=== PATIENT | female | born 1970 | race Hispanic/Latino ===

== ENCOUNTER 2018-06-04 09:46 | Emergency (ER) | payer MEDICARE ==
[2018-06-04 10:36] LABS: Basophils % (Auto) 0.3 % (0.0-1.8); Eosinophils # (Auto) 0.2 K/mm3 (0.0-0.4); Eosinophils % (Auto) 2.1 % (0.0-4.3); Hematocrit 40.9 % (30.3-42.9); Hemoglobin 13.7 gm/dl (10.1-14.3); Lymphocytes # (Auto) 1.6 K/mm3 (1.2-5.4); Mean Corpuscular HGB Conc 33 % (30-34); Mean Corpuscular Volume 85 fl (79-97); Monocytes # (Auto) 0.5 K/mm3 (0.0-0.8); Monocytes % (Auto) 4.7 % (0.0-7.3); Platelet Count 318 K/mm3 (140-440); Red Blood Count 4.79 M/mm3 (3.65-5.03); Red Cell Distribution Width 14.8 % (13.2-15.2)
[2018-06-04 10:51] LABS: BUN/Creatinine Ratio 11; Blood Urea Nitrogen 9 mg/dL (7-17); Calcium 9.9 mg/dL (8.4-10.2); Hemolysis Index 8
[2018-06-04] MEDS ORDERED: ATIVAN IM ONE (11:40)
--- NOTE | 2018-06-04 12:00 | Emergency Department Report ---
ED Psych HPI - General Chief Complaint: Psych Stated Complaint: MENTAL EVAL Time Seen by Provider: 06/04/18 11:20 Source: patient, police Mode of arrival: Ambulatory - History of Present Illness Initial Comments: 47-year-old brought in by police for aggressive behavior and her group home house. Patient denies SI, HI, or hallucinations. She states she is feeling anxious right now. Patient currently rocking back and forth in her bed. States she does not know her diagnosis, states she takes medication but does not know the names of them. - Related Data Home Medications Medication Instructions Recorded Confirmed Last Taken Unobtainable 06/04/18 06/04/18 Unknown Allergies Allergy/AdvReac Type Severity Reaction Status Date / Time Penicillins Allergy Hives Verified 06/04/18 10:07 ED Review of Systems ROS: Stated complaint: MENTAL EVAL Other details as noted in HPI ED Past Medical Hx - Social History Smoking Status: Never Smoker Substance Use Type: None - Medications Home Medications: Home Medications Medication Instructions Recorded Confirmed Last Taken Type Unobtainable 06/04/18 06/04/18 Unknown History ED Physical Exam - General Limitations: No Limitations ED Course Vital Signs 06/04/18 06/04/18 06/04/18 10:06 15:20 15:31 Temperature 99.2 F 97.5 F L Pulse Rate 91 H 102 H Respiratory 18 18 Rate Blood Pressure 149/82 136/78 O2 Sat by Pulse 97 99 Oximetry ED Medical Decision Making - Lab Data Result diagrams: 06/04/18 10:17 06/04/18 10:17 - Medical Decision Making 47-year-old female with unknown psychiatric diagnosis presents with aggressive and violent behavior towards those in her residence. Patient placed on a 1013. UA shows evidence of UTI. Bactrim DS given. Patient otherwise medically clear for mental health evaluation. Will dispo per psych. Critical care attestation.: If time is entered above; I have spent that time in minutes in the direct care of this critically ill patient, excluding procedure time. ED Disposition Clinical Impression: Medical clearance for psychiatric admission, UTI (urinary tract infection) Disposition: DC/TX-65 PSY HOSP/PSY UNIT Is pt being admited?: No Condition: Stable
[2018-06-04 12:49] LABS: Bacteria,Urine 1+ /HPF (Negative); Bilirubin,Urine NEG (Negative); Blood,Urine MOD (Negative); Color,Urine Yellow (Yellow); Mucus,Urine FEW /HPF; Protein,Urine <15 mg/dL mg/dL (Negative); Urobilinogen,Urine < 2.0 mg/dL (<2.0)
[2018-06-04 13:18] LABS: Amphetamine Screen,Urine PRESUMPTIVE NEGATIVE; Benzodiazepines Screen,Urine PRESUMPTIVE NEGATIVE; Cannabinoid Screen,Urine PRESUMPTIVE NEGATIVE; Cocaine Screen,Urine PRESUMPTIVE NEGATIVE; Methadone Screen,Urine PRESUMPTIVE NEGATIVE; Opiate Screen,Urine PRESUMPTIVE NEGATIVE
[2018-06-04] MEDS ORDERED: BACTRIM DS PO ONE (15:03)
[2018-06-04 15:31] VITALS: BP 136/78
== END 2018-06-04 18:55 ==
LOC: ED 09:46
DX: N39.0 Urinary tract infection, site not specified (principal)
CPT/HCPCS: 36415; 80048; 80307; 81001; 84703; 85025; 96372; 99285; G0480; J2060; 80320

== ENCOUNTER 2018-06-04 20:53 | Emergency (ER) | payer MEDICARE ==
--- NOTE | 2018-06-04 21:24 | Emergency Department Report ---
Blank Doc - Documentation Documentation: 47 y.o. female presents with chest pain that started 1 hour ago. Patient brou ght in via EMS. She was discharged today around 1500 from this ER. cc substernal chest pain that is sharp radiating to BLE Patient have rapid eye movements and rocking back in forth in triage. MSE complete Main side for evaluation
== END 2018-06-04 23:10 | disposition left against medical advice (07) ==
LOC: ED 20:53

== ENCOUNTER 2018-06-05 08:06 | Emergency (ER) | payer MEDICARE ==
[2018-06-05] MEDS ORDERED: GEODON IM ONE (09:09)
--- NOTE | 2018-06-05 09:25 | Emergency Department Report ---
ED Psych HPI - General Chief Complaint: Medical Clearance Stated Complaint: BIPOLAR DISORDER Time Seen by Provider: 06/05/18 09:00 Source: patient Mode of arrival: Ambulatory - History of Present Illness Initial Comments: Patient is a 47-year-old female with past medical history bipolar disorder who was transported to [facility] last night with walking to our ER this morning stating that she has bipolar disorder and she also has chest pain. Patient is a poor historian secondary to her bipolar disorder. Patient is reluctant to answer questions and is just yelling aggressively that she has chest pain and she artery answered our 'F'n questions" - Related Data Previous Rx's Medication Instructions Recorded Last Taken Type Sulfamethoxazole/Trimethoprim 1 each PO BID #6 tablet 06/04/18 Unknown Rx [Bactrim DS TAB] Allergies Allergy/AdvReac Type Severity Reaction Status Date / Time Penicillins Allergy Hives Verified 06/04/18 10:07 ED Review of Systems ROS: Stated complaint: BIPOLAR DISORDER Other details as noted in HPI Comment: All other systems reviewed and negative ED Past Medical Hx - Past Medical History Hx Diabetes: Yes Hx Psychiatric Treatment: Yes (bipolar) - Social History Smoking Status: Never Smoker Substance Use Type: None - Medications Home Medications: Home Medications Medication Instructions Recorded Confirmed Last Taken Type Sulfamethoxazole/Trimethoprim 1 each PO BID #6 tablet 06/04/18 Unknown Rx [Bactrim DS TAB] ED Physical Exam - General Limitations: Other General appearance: alert, in no apparent distress, other (yelling and attempting to be intimidating iwlliam her loudness and gestures which are animated) - Head Head exam: Present: atraumatic, normocephalic - Eye Eye exam: Present: normal appearance - ENT ENT exam: Present: mucous membranes moist - Neck Neck exam: Present: normal inspection - Respiratory Respiratory exam: Present: other (patient grabbed my stethoscope from me as I was attempting to listen to her heart and lungs). Absent: respiratory distress - Cardiovascular Cardiovascular Exam: Present: other (please see respiratory notes) - GI/Abdominal GI/Abdominal exam: Present: soft, normal bowel sounds. Absent: distended, tenderness, guarding - Extremities Exam Extremities exam: Present: normal inspection - Back Exam Back exam: Present: normal inspection - Neurological Exam Neurological exam: Present: alert, oriented X3, CN II-XII intact, normal gait, other (pressured speech) - Psychiatric Psychiatric exam: Present: normal affect, agitated - Skin Skin exam: Present: warm, dry, intact, normal color. Absent: rash ED Course Vital Signs 06/05/18 11:08 Respiratory 20 Rate O2 Sat by Pulse 98 Oximetry ED Medical Decision Making - Lab Data Result diagrams: 06/05/18 10:08 06/05/18 10:08 Lab Results 06/05/18 06/05/18 06/05/18 Range/Units 10:08 10:08 10:08 WBC 9.8 (4.5-11.0) K/mm3 RBC 4.64 (3.65-5.03) M/mm3 Hgb 13.2 (10.1-14.3) gm/dl Hct 40.1 (30.3-42.9) % MCV 87 (79-97) fl MCH 29 (28-32) pg MCHC 33 (30-34) % RDW 14.9 (13.2-15.2) % Plt Count 280 (140-440) K/mm3 Lymph % (Auto) 15.8 (13.4-35.0) % Cooper % (Auto) 5.8 (0.0-7.3) % Eos % (Auto) 1.9 (0.0-4.3) % Baso % (Auto) 0.3 (0.0-1.8) % Lymph # 1.6 (1.2-5.4) K/mm3 Cooper # 0.6 (0.0-0.8) K/mm3 Eos # 0.2 (0.0-0.4) K/mm3 Baso # 0.0 (0.0-0.1) K/mm3 Seg Neutrophils % 76.2 H (40.0-70.0) % Seg Neutrophils # 7.5 (1.8-7.7) K/mm3 Sodium 139 (137-145) mmol/L Potassium 3.8 (3.6-5.0) mmol/L Chloride 103.6 (98-107) mmol/L Carbon Dioxide 20 L (22-30) mmol/L Anion Gap 19 mmol/L BUN 13 (7-17) mg/dL Creatinine 0.8 (0.7-1.2) mg/dL Estimated GFR > 60 ml/min BUN/Creatinine Ratio 16 % Glucose 137 H (65-100) mg/dL Calcium 9.1 (8.4-10.2) mg/dL Salicylates < 0.3 L (2.8-20.0) mg/dL Acetaminophen (10.0-30.0) ug/mL Plasma/Serum Alcohol (0-0.07) % 06/05/18 06/05/18 Range/Units 10:08 10:08 WBC (4.5-11.0) K/mm3 RBC (3.65-5.03) M/mm3 Hgb (10.1-14.3) gm/dl Hct (30.3-42.9) % MCV (79-97) fl MCH (28-32) pg MCHC (30-34) % RDW (13.2-15.2) % Plt Count (140-440) K/mm3 Lymph % (Auto) (13.4-35.0) % Cooper % (Auto) (0.0-7.3) % Eos % (Auto) (0.0-4.3) % Baso % (Auto) (0.0-1.8) % Lymph # (1.2-5.4) K/mm3 Cooper # (0.0-0.8) K/mm3 Eos # (0.0-0.4) K/mm3 Baso # (0.0-0.1) K/mm3 Seg Neutrophils % (40.0-70.0) % Seg Neutrophils # (1.8-7.7) K/mm3 Sodium (137-145) mmol/L Potassium (3.6-5.0) mmol/L Chloride (98-107) mmol/L Carbon Dioxide (22-30) mmol/L Anion Gap mmol/L BUN (7-17) mg/dL Creatinine (0.7-1.2) mg/dL Estimated GFR ml/min BUN/Creatinine Ratio % Glucose (65-100) mg/dL Calcium (8.4-10.2) mg/dL Salicylates (2.8-20.0) mg/dL Acetaminophen < 5.0 L (10.0-30.0) ug/mL Plasma/Serum Alcohol < 0.01 (0-0.07) % - Medical Decision Making In further review of the patient's last 24 hours after the patient left the emergency department here last night the patient refused to be signed in to [facility] and started complaining of chest pain. Patient was transported here and was screened from the emergency department but then left again. Patient then showed up this morning wanted to be evaluated. Patient has been met by one of the sutures from [place] and the patient has been medically cleared this time he'll be transported back to [facility]. Critical care attestation.: If time is entered above; I have spent that time in minutes in the direct care of this critically ill patient, excluding procedure time. ED Disposition Clinical Impression: Medical clearance for psychiatric admission Disposition: DC/TX-65 PSY HOSP/PSY UNIT Is pt being admited?: No Condition: Stable Referrals: MINH GIBSON DO [Primary Care Provider] - 3-5 Days
[2018-06-05 10:23] LABS: Basophils % (Auto) 0.3 % (0.0-1.8); Eosinophils # (Auto) 0.2 K/mm3 (0.0-0.4); Eosinophils % (Auto) 1.9 % (0.0-4.3); Hematocrit 40.1 % (30.3-42.9); Hemoglobin 13.2 gm/dl (10.1-14.3); Lymphocytes # (Auto) 1.6 K/mm3 (1.2-5.4); Lymphocytes % (Auto) 15.8 % (13.4-35.0); Mean Corpuscular HGB Conc 33 % (30-34); Mean Corpuscular Volume 87 fl (79-97); Monocytes # (Auto) 0.6 K/mm3 (0.0-0.8); Monocytes % (Auto) 5.8 % (0.0-7.3); Platelet Count 280 K/mm3 (140-440); Red Blood Count 4.64 M/mm3 (3.65-5.03); Red Cell Distribution Width 14.9 % (13.2-15.2)
[2018-06-05 10:35] LABS: BUN/Creatinine Ratio 16; Blood Urea Nitrogen 13 mg/dL (7-17); Calcium 9.1 mg/dL (8.4-10.2); Hemolysis Index 18
== END 2018-06-05 12:50 ==
LOC: ED 08:06
DX: F31.9 Bipolar disorder, unspecified (principal); E11.9 Type 2 diabetes mellitus without complications; Z88.0 Allergy status to penicillin
CPT/HCPCS: 36415; 80048; 85025; 93005; 93010; 96372; 99283; G0480; J3486; 80320

== ENCOUNTER 2018-06-21 19:05 | Observation (INO) | payer MEDICARE ==
--- NOTE | 2018-06-21 19:37 | Emergency Department Report ---
ED Chest Pain HPI - General Chief Complaint: Chest Pain Stated Complaint: (R) ARM PAIN Time Seen by Provider: 06/21/18 19:26 Source: patient, EMS Mode of arrival: Ambulatory Limitations: No Limitations - History of Present Illness Initial Comments: 47-year-old female presents to the emergency department from home with a complaint of a 10 day history of intermittent midsternal chest pain. She says that recently it has radiated towards her right arm. She denies any shortness of breath, back pain, fever, nausea, vomiting or diaphoresis. She has not taken anything for her symptoms prior to arrival. She denies any tobacco or illicit drug use or abuse. She has a past medical history of bipolar disorder and prediabetes. No recent travel or sick contacts at home. She does not have a primary care physician or medicare sales executive. - Related Data Previous Rx's Medication Instructions Recorded Last Taken Type Sulfamethoxazole/Trimethoprim 1 each PO BID #6 tablet 06/04/18 Unknown Rx [Bactrim DS TAB] Allergies Allergy/AdvReac Type Severity Reaction Status Date / Time Penicillins Allergy Hives Verified 06/04/18 10:07 Heart Score - HEART Score History: Slightly suspicious EKG: Normal Age: 45-65 Risk factors: No known risk factors Troponin: < normal limit HEART Score: 1 - Critical Actions Critical Actions: 0-3 pts:0.9-1.7%risk of adverse cardiac event.Candidate for discharge ED Review of Systems ROS: Stated complaint: (R) ARM PAIN Other details as noted in HPI Comment: All other systems reviewed and negative Constitutional: denies: chills, fever Eyes: denies: eye pain, vision change ENT: denies: ear pain, throat pain Respiratory: denies: cough, shortness of breath Cardiovascular: chest pain. denies: palpitations Gastrointestinal: denies: abdominal pain, vomiting Genitourinary: denies: dysuria, discharge Musculoskeletal: myalgia. denies: back pain Skin: denies: rash, lesions Neurological: denies: headache, weakness ED Past Medical Hx - Past Medical History Previous Medical History?: Yes Hx Diabetes: Yes Hx Psychiatric Treatment: Yes (bipolar) - Social History Smoking Status: Never Smoker Substance Use Type: Prescribed - Medications Home Medications: Home Medications Medication Instructions Recorded Confirmed Last Taken Type Sulfamethoxazole/Trimethoprim 1 each PO BID #6 tablet 06/04/18 Unknown Rx [Bactrim DS TAB] ED Physical Exam - General Limitations: No Limitations - Other Other exam information: GENERAL: The patient is well-developed well-nourished. HEENT: Normocephalic. Atraumatic. Patient has moist mucous membranes. EYES: Extraocular motions are intact. Pupils are equal and reactive to light bilaterally. NECK: Supple. Trachea is midline. CHEST/LUNGS: Clear to auscultation. There is no respiratory distress noted. Chest pain is not reproducible to palpation of the chest wall. HEART/CARDIOVASCULAR: Regular. There is no tachycardia. There is no obvious murmur. ABDOMEN: Abdomen is soft, nontender. Patient has normal bowel sounds. There is no abdominal distention. SKIN: Skin is warm and dry. NEURO: The patient is awake, alert, and oriented. The patient is cooperative. The patient has no focal neurologic deficits. The patient has normal speech. MUSCULOSKELETAL: There is no tenderness or deformity. There is no evidence of acute injury. ED Course Vital Signs 06/21/18 06/21/18 06/21/18 15:40 15:46 19:25 Temperature 98.0 F Pulse Rate Respiratory 21 19 Rate Blood Pressure O2 Sat by Pulse Oximetry 06/21/18 06/21/18 06/21/18 19:38 19:45 20:01 Temperature Pulse Rate 91 H 95 H 98 H Respiratory 17 21 20 Rate Blood Pressure 104/65 104/65 104/65 O2 Sat by Pulse Oximetry 06/21/18 06/21/18 06/21/18 20:15 20:30 20:45 Temperature Pulse Rate 87 101 H 83 Respiratory 20 17 18 Rate Blood Pressure 104/65 96/69 96/69 O2 Sat by Pulse 97 94 95 Oximetry 06/21/18 06/21/18 06/21/18 21:00 21:15 21:45 Temperature Pulse Rate 84 79 97 H Respiratory 18 18 20 Rate Blood Pressure 108/75 108/75 108/75 O2 Sat by Pulse 98 Oximetry 06/21/18 23:01 Temperature Pulse Rate 87 Respiratory 20 Rate Blood Pressure 111/63 O2 Sat by Pulse 97 Oximetry ARIANNE score - Arianne Score Age > 65: (0) No Aspirin use within the Past 7 Days: (0) No 3 or more CAD Risk Factors: (0) No 2 or more Angina events in past 24 hrs: (1) Yes (If pain is angina) Known CAD with more than 50% Stenosis: (0) No Elevated Cardiac Markers: (0) No ST Deviation Greater than 0.5mm: (0) No ARIANNE Score: 1 ED Medical Decision Making - Lab Data Result diagrams: 06/21/18 19:42 06/21/18 19:42 - EKG Data -: EKG Interpreted by Me EKG shows normal: sinus rhythm, axis, intervals, QRS complexes, ST-T waves Rate: normal - EKG Data When compared to previous EKG there are: no significant change Interpretation: unchanged when compared t (06/04/18) - Radiology Data Radiology results: report reviewed, image reviewed EXAM: CT ANGIO CHEST HISTORY: CP, elevated dimer TECHNIQUE: High-resolution helical axial images were obtained of the chest during intravenous administration of iodinated contrast. Images are reconstructed in the sagittal and coronal planes. PRIORS: None. FINDINGS: Opacification of the pulmonary arteries slightly less than optimal for demonstration of small or peripheral PE. The heart and thoracic aorta appear normal. There is mild right basilar subsegmental atelectasis. The lungs are clear. There are very small bilateral pleural effusions. Images through the upper abdomen are unremarkable. The bones are unremarkable. IMPRESSION: 1. Suboptimal contrast opacification of the pulmonary arterial tree limits s ensitivity in this study. Depending on the clinical assessment, further evaluation should be consid ered such as a nuclear medicine ventilation/perfusion study and/or bilateral lower extremity duplex to better assess risk of PE. 2. Very small bilateral pleural effusions and mild right basilar subsegmental atelectasis Transcribed By: [facility] [place] Dictated By: YONAS SHEETS MD Electronically Authenticated By: YONAS SHEETS MD Signed Date/Time: 06/21/18 1561 - Medical Decision Making Patient presents to the emergency department with a 10 day history of intermitt ent midsternal chest pain that has now also started to involve the right upper extremity. EKG does not show any signs of ST elevation [place], ischemia or dysrhythmia. Patient has negative troponins 2 this far. There is a slightly elevated and equivocal d-dimer and therefore a CT angiography of the chest was done. It was a suboptimal contrasted study for any small or peripheral PEs but there is no obvious large pulmonary embolism. Chest x-ray did not show any focal consolidation, pneumothorax, pneumonia, pleural effusions, or any other acute processes. However the patient continues to have some intermittent chest pains and has never had a full cardiac workup including a stress test. For this reason the patient will be admitted the hospital for further evaluation and treatment was accepted for admission by the hospitalist, Dr. Honeycutt. - Differential Diagnosis WA, PE, Costochondritis, GERD Critical Care Time: No Critical care attestation.: If time is entered above; I have spent that time in minutes in the direct care of this critically ill patient, excluding procedure time. ED Disposition Clinical Impression: Chest pain, rule out acute myocardial infarction Chest pain Qualifiers: Chest pain type: unspecified Qualified Code(s): R07.9 - Chest pain, unspecified Disposition: 09 OP ADMIT IP TO THIS HOSP Is pt being admited?: Yes Condition: Fair Instructions: Chest Pain (ED) Referrals: PRIMARY CARE, [Primary Care Provider] - 3-5 Days Time of Disposition: 00:30
[2018-06-21 20:03] LABS: Basophils % (Auto) 0.4 % (0.0-1.8); Eosinophils # (Auto) 0.3 K/mm3 (0.0-0.4); Eosinophils % (Auto) 3.2 % (0.0-4.3); Hematocrit 36.7 % (30.3-42.9); Hemoglobin 12.9 gm/dl (10.1-14.3); Lymphocytes # (Auto) 2.2 K/mm3 (1.2-5.4); Mean Corpuscular HGB Conc 35 % (30-34); Mean Corpuscular Volume 85 fl (79-97); Monocytes # (Auto) 0.6 K/mm3 (0.0-0.8); Monocytes % (Auto) 5.7 % (0.0-7.3); Platelet Count 248 K/mm3 (140-440); Red Blood Count 4.29 M/mm3 (3.65-5.03); Red Cell Distribution Width 14.4 % (13.2-15.2)
[2018-06-21 20:14] LABS: BUN/Creatinine Ratio 11; Blood Urea Nitrogen 8 mg/dL (7-17); Hemolysis Index 12
--- NOTE | 2018-06-21 21:37 | XRay Report ---
FINAL REPORT PROCEDURE: Chest. TECHNIQUE: Portable AP view. HISTORY: Chest pain. COMPARISON: No prior studies are available for comparison. FINDINGS: The heart and mediastinum appear normal. The lungs are clear and well expanded. There are no pleural effusions. The soft tissues and regional skeleton are unremarkable. IMPRESSION: Normal study.
--- NOTE | 2018-06-21 23:18 | Cat Scan Report ---
FINAL REPORT EXAM: CT ANGIO CHEST HISTORY: CP, elevated dimer TECHNIQUE: High-resolution helical axial images were obtained of the chest during intravenous admini stration of iodinated contrast. Images are reconstructed in the sagittal and coronal planes. PRIORS: None. FINDINGS: Opacification of the pulmonary arteries slightly less than optimal for demonstration of small or wiliam pheral PE. The heart and thoracic aorta appear normal. There is mild right basilar subsegmental atelectasis. The lungs are clear. There are very small bilat eral pleural effusions. Images through the upper abdomen are unremarkable. The bones are unremarkable. IMPRESSION: 1. Suboptimal contrast opacification of the pulmonary arterial tree limits sensitivity in this study. Depending on the clinical assessment, further evaluation should be considered such as a nuclear medi cine ventilation/perfusion study and/or bilateral lower extremity duplex to better assess risk of PE. 2. Very small bilateral pleural effusions and mild right basilar subsegmental atelectasis
[2018-06-21] MEDS ORDERED: TORADOL IV ONE (23:22)
[2018-06-22] MEDS ORDERED: BABY ASPIRIN PO ONE (00:29)
[2018-06-22] MEDS ORDERED: NITROSTAT SL PRN (01:31)
[2018-06-22] MEDS ORDERED: MORPHINE IV PRN (01:31)
[2018-06-22] MEDS ORDERED: ZOFRAN IV PRN (01:31)
[2018-06-22] MEDS ORDERED: TYLENOL PO PRN (01:32)
[2018-06-22] MEDS: HEPARIN SUB-Q SCH ×2 (01:38→13:24)
[2018-06-22] MEDS: NITRO-BID 2% TP SCH ×5 (02:35→17:32)
--- NOTE | 2018-06-22 04:14 | History and Physical Report ---
CHIEF COMPLAINT: Chest pain. HISTORY OF PRESENT ILLNESS: The patient is a 47-year-old female who said she has been having chest pain going on and off for 10 days; pain is located at the precordial and retrosternal area and radiates towards the right, and she has no history of shortness of breath, no associated history of nausea, vomiting, diaphoresis, or fever or cough. The patient also denied history of dizziness and presented for evaluation. PAST MEDICAL HISTORY: Pertinent for diabetes mellitus, bipolar disorder. PAST SURGICAL HISTORY: Unremarkable. FAMILY HISTORY: Noncontributory. SOCIAL HISTORY: The patient does not smoke, does not drink alcohol, and does not use illicit drugs. MEDICATIONS: The patient is on Bactrim double strength one by mouth twice daily. ALLERGIES: The patient is allergic to PENICILLIN. REVIEW OF SYSTEMS: CONSTITUTIONAL: There is no fever, no chills, no diaphoresis. HEENT: There is no headache or sore throat. CARDIOVASCULAR SYSTEM: Chest pain is present. No orthopnea. RESPIRATORY SYSTEM: There is no shortness of breath or cough. GASTROINTESTINAL SYSTEM: There is no nausea, no vomiting, no abdominal pain, diarrhea or constipation. NEUROLOGICAL SYSTEM: There is no numbness, no dizziness, no altered mental status. MUSCULOSKELETAL SYSTEM: There is no joint pain or swelling. DERMATOLOGICAL SYSTEM: There is no skin rash or itching. GENITOURINARY SYSTEM: There is no dysuria, hematuria or flank pain. Rest of system review is normal. PHYSICAL EXAMINATION: GENERAL: At the time of exam, the patient was found to be alert, oriented x3, and not in acute distress. VITAL SIGNS: At the initial time of presentation show temperature of 98 degree Fahrenheit, pulse of 91, respirations 17, blood pressure 104/65, O2 sat of 97% on room air. HEENT: Showed pupils to be equal, round, reactive to light and accommodation. Extraocular muscles are intact. NECK: Supple with no JVD or carotid bruit. CARDIOVASCULAR SYSTEM: Showed normal first and second heart sounds with no gallops or murmurs. RESPIRATORY SYSTEM: Showed good air entry on both sides of the lungs with no abnormal breath sounds. GASTROINTESTINAL SYSTEM: Show abdomen to be full, soft, and nontender with no organomegaly or rigidity. NEUROLOGICAL: Shows no focal deficit. MUSCULOSKELETAL SYSTEM: Shows no joint swelling or tenderness. DERMATOLOGICAL SYSTEM: Showing no skin rash. GENITOURINARY SYSTEM: Showing no costovertebral angle tenderness. PERTINENT LABORATORY DATA AND IMAGING STUDIES: The patient had chest x-ray done that shows no acute cardiopulmonary lesion. Also, the patient had CT angiogram of the chest done that shows a suboptimal contrast opacification of the pulmonary artery tree, the early missed activity in the study. There is finding of varus small bilateral pleural effusion and mild right basilar segmental atelectasis. The patient has CBC done that came back unremarkable. Coagulation studies show elevated D-dimer of 362.5. The patient's chemistry was unremarkable. Blood test was unremarkable. Troponin levels came back normal. DIAGNOSIS: Chest pain. PLAN OF ACTION: 1. The patient will be admitted to telemetry. 2. The patient will have cardiac enzymes checked serially and this would involve CPK and troponin, and CK-MB every 6 hours x 2 more levels. 3. The patient will be n.p.o. for Lexiscan stress test this morning. 4. The patient will be on aspirin 325 mg by mouth daily. 5. The patient will be on IV morphine 2 mg every 3 hours as needed for chest pain. 6. The patient will be on heparin 5000 units subq q.12 hours, will be on Tylenol 650 mg by mouth every 4 hours for fever and headache. 7. The patient will be on nitro paste half inch to anterior chest wall q.6 hours and will be on Nitrostat 0.4 mg every 5 minutes as needed for pain. 8. The patient will be on Zofran 4 mg IV every 8 hours for nausea and vomiting, and will be on oxygen by nasal cannula 2 liters per minute. JOB# [id number] OCN/NTS ELOISED
[2018-06-22 06:49] LABS: Creatine Kinase MB < 1.0 ng/mL (0.0-4.0)
[2018-06-22] MEDS: ASPIRIN PO SCH (09:56)
--- NOTE | 2018-06-22 12:18 | Progress Note ---
Assessment and Plan Assessment and plan: Patient is a 47 year old female presents admitted with chest pain. No family hx of personal risk factors except obesity and prediabetes She has a past medical history of bipolar disorder and prediabetes. No recent travel or sick contacts at home. 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 Atypical chest pain- likely costochondritis Bipolar disorder Morbid Obesity Pleural effusion Plan STRESS TEST IN AM Counselling on obesity and diet regulation. Outpatient EGD if stress test is negative Continue current management. DVT/GI prophy History Interval history: Patient seen and examined, no new chest pain. Nausea and vomiting at this time Hospitalist Physical - Constitutional Vitals: Temp Pulse Resp BP Pulse Ox 97.5 F L 78 18 115/71 95 06/22/18 09:43 06/22/18 09:56 06/22/18 10:00 06/22/18 09:56 06/22/18 10:16 General appearance: Present: no acute distress, well-nourished. Absent: mild distress - EENT Eyes: Present: PERRL, EOM intact ENT: hearing intact - Neck Neck: Present: supple, normal ROM - Respiratory Respiratory effort: normal Respiratory: bilateral: CTA - Cardiovascular Rhythm: regular Heart Sounds: Present: S1 & S2. Absent: systolic murmur - Extremities Extremities: no ischemia, pulses intact, pulses symmetrical, No edema, normal temperature, normal color, Full ROM Peripheral Pulses: within normal limits - Abdominal General gastrointestinal: soft, non-tender, non-distended, normal bowel sounds - Integumentary Integumentary: Present: clear, warm, dry - Psychiatric Psychiatric: appropriate mood/affect, intact judgment & insight, cooperative - Neurologic Neurologic: CNII-XII intact, moves all extremities - Allied Health Allied health notes reviewed: nursing Results - Labs CBC & Chem 7: 06/21/18 19:42 06/21/18 19:42 Labs: Laboratory Last Values WBC 10.5 K/mm3 (4.5-11.0) 06/21/18 19:42 RBC 4.29 M/mm3 (3.65-5.03) 06/21/18 19:42 Hgb 12.9 gm/dl (10.1-14.3) 06/21/18 19:42 Hct 36.7 % (30.3-42.9) 06/21/18 19:42 MCV 85 fl (79-97) 06/21/18 19:42 MCH 30 pg (28-32) 06/21/18 19:42 MCHC 35 % (30-34) H 06/21/18 19:42 RDW 14.4 % (13.2-15.2) 06/21/18 19:42 Plt Count 248 K/mm3 (140-440) 06/21/18 19:42 Lymph % (Auto) 21.0 % (13.4-35.0) 06/21/18 19:42 [place] % (Auto) 5.7 % (0.0-7.3) 06/21/18 19:42 Eos % (Auto) 3.2 % (0.0-4.3) 06/21/18 19:42 Baso % (Auto) 0.4 % (0.0-1.8) 06/21/18 19:42 Lymph # 2.2 K/mm3 (1.2-5.4) 06/21/18 19:42 [place] # 0.6 K/mm3 (0.0-0.8) 06/21/18 19:42 Eos # 0.3 K/mm3 (0.0-0.4) 06/21/18 19:42 Baso # 0.0 K/mm3 (0.0-0.1) 06/21/18 19:42 Seg Neutrophils % 69.7 % (40.0-70.0) 06/21/18 19:42 Seg Neutrophils # 7.3 K/mm3 (1.8-7.7) 06/21/18 19:42 D-Dimer 362.58 ng/mlDDU (0-234) H 06/21/18 19:42 Sodium 140 mmol/L (137-145) 06/21/18 19:42 Potassium 4.2 mmol/L (3.6-5.0) 06/21/18 19:42 Chloride 105.3 mmol/L (98-107) 06/21/18 19:42 Carbon Dioxide 24 mmol/L (22-30) 06/21/18 19:42 Anion Gap 15 mmol/L 06/21/18 19:42 BUN 8 mg/dL (7-17) 06/21/18 19:42 Creatinine 0.7 mg/dL (0.7-1.2) 06/21/18 19:42 Estimated GFR > 60 ml/min 06/21/18 19:42 BUN/Creatinine Ratio 11 % 06/21/18 19:42 Glucose 116 mg/dL (65-100) H 06/21/18 19:42 Calcium 9.0 mg/dL (8.4-10.2) 06/21/18 19:42 Total Creatine Kinase 22 units/L (30-135) L 06/22/18 06:09 CK-MB (CK-2) < 1.0 ng/mL (0.0-4.0) 06/22/18 06:09 CK-MB (CK-2) Rel Index 4.5 (0-4) H 06/22/18 06:09 Troponin T < 0.010 ng/mL (0.00-0.029) 06/22/18 06:09 HCG, Qual Negative (Negative) 06/21/18 19:42
[2018-06-22 13:14] LABS: Creatine Kinase MB < 1.0 ng/mL (0.0-4.0)
[2018-06-23] MEDS: HEPARIN SUB-Q SCH ×2 (01:31→15:41)
[2018-06-23] MEDS: NITRO-BID 2% TP SCH ×4 (06:06→18:08)
--- NOTE | 2018-06-23 09:26 | Discharge Summary ---
Providers - Providers Date of Admission: 06/22/18 00:30 Attending physician: KRYSTIAN CASTILLO MD Primary care physician: [employer] Hospitalization Condition: Stable Disposition: DC-01 TO HOME OR SELFCARE Exam - Constitutional Vitals: Temp Pulse Resp BP Pulse Ox 98.3 F 81 17 129/81 96 06/22/18 20:16 06/22/18 20:16 06/22/18 20:16 06/22/18 20:16 06/22/18 21:00 Plan Activity: advance as tolerated, fall precautions Diet: low fat, low salt Special Instructions: record daily BP diary Follow up with: PRIMARY CARE, [Primary Care Provider] - 3-5 Days
[2018-06-23] MEDS ORDERED: LEXISCAN IV ONE ×2 (10:25→10:27)
[2018-06-23] MEDS: ASPIRIN PO SCH (15:41)
--- NOTE | 2018-06-23 16:42 | Treadmill Report ---
THALLIUM STRESS TEST LEFT VENTRICLE: Left ventricular chamber size is within normal spread. Perfusion study demonstrates homogeneous uptake of the tracer in all segments, no significant perfusion defects identified. Gated analysis demonstrates normal left ventricular systolic function, ejection fraction 68%. CONCLUSION: Normal myocardial perfusion study. JOB# [id number] CA/NTS
--- NOTE | 2018-06-23 22:47 | Progress Note ---
Assessment and Plan Assessment and plan: Patient is a 47 year old female presents admitted with chest pain. No family hx of personal risk factors except obesity and prediabetes She has a past medical history of bipolar disorder and prediabetes. No recent travel or sick contacts at home. 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 Recommended Outpatient EGD if stress test is negative Continue current management. DVT/GI prophy History Interval history: Patient seen and examined, no new chest pain. Nausea and vomiting at this time. Patient underwent stress test. Hospitalist Physical - Constitutional Vitals: Temp Pulse Resp BP Pulse Ox 98.1 F 86 18 95/71 96 06/23/18 19:49 06/23/18 19:49 06/23/18 19:49 06/23/18 19:49 06/23/18 19:49 General appearance: Present: no acute distress, well-nourished. Absent: mild distress - EENT Eyes: Present: PERRL, EOM intact ENT: hearing intact, clear oral mucosa - Neck Neck: Present: supple, normal ROM - Respiratory Respiratory effort: normal - Cardiovascular Rhythm: regular Heart Sounds: Present: S1 & S2. Absent: systolic murmur, diastolic murmur - Extremities Extremities: no ischemia, pulses intact, pulses symmetrical, No edema, normal temperature, Full ROM Peripheral Pulses: within normal limits - Abdominal General gastrointestinal: soft, non-tender, non-distended, normal bowel sounds - Integumentary Integumentary: Present: clear, dry - Psychiatric Psychiatric: appropriate mood/affect, intact judgment & insight - Neurologic Neurologic: CNII-XII intact - Allied Health Allied health notes reviewed: nursing Results - Labs CBC & Chem 7: 06/21/18 19:42 06/21/18 19:42 Labs: Laboratory Last Values WBC 10.5 K/mm3 (4.5-11.0) 06/21/18 19:42 RBC 4.29 M/mm3 (3.65-5.03) 06/21/18 19:42 Hgb 12.9 gm/dl (10.1-14.3) 06/21/18 19:42 Hct 36.7 % (30.3-42.9) 06/21/18 19:42 MCV 85 fl (79-97) 06/21/18 19:42 MCH 30 pg (28-32) 06/21/18 19:42 MCHC 35 % (30-34) H 06/21/18 19:42 RDW 14.4 % (13.2-15.2) 06/21/18 19:42 Plt Count 248 K/mm3 (140-440) 06/21/18 19:42 Lymph % (Auto) 21.0 % (13.4-35.0) 06/21/18 19:42 [place] % (Auto) 5.7 % (0.0-7.3) 06/21/18 19:42 Eos % (Auto) 3.2 % (0.0-4.3) 06/21/18 19:42 Baso % (Auto) 0.4 % (0.0-1.8) 06/21/18 19:42 Lymph # 2.2 K/mm3 (1.2-5.4) 06/21/18 19:42 [place] # 0.6 K/mm3 (0.0-0.8) 06/21/18 19:42 Eos # 0.3 K/mm3 (0.0-0.4) 06/21/18 19:42 Baso # 0.0 K/mm3 (0.0-0.1) 06/21/18 19:42 Seg Neutrophils % 69.7 % (40.0-70.0) 06/21/18 19:42 Seg Neutrophils # 7.3 K/mm3 (1.8-7.7) 06/21/18 19:42 D-Dimer 362.58 ng/mlDDU (0-234) H 06/21/18 19:42 Sodium 140 mmol/L (137-145) 06/21/18 19:42 Potassium 4.2 mmol/L (3.6-5.0) 06/21/18 19:42 Chloride 105.3 mmol/L (98-107) 06/21/18 19:42 Carbon Dioxide 24 mmol/L (22-30) 06/21/18 19:42 Anion Gap 15 mmol/L 06/21/18 19:42 BUN 8 mg/dL (7-17) 06/21/18 19:42 Creatinine 0.7 mg/dL (0.7-1.2) 06/21/18 19:42 Estimated GFR > 60 ml/min 06/21/18 19:42 BUN/Creatinine Ratio 11 % 06/21/18 19:42 Glucose 116 mg/dL (65-100) H 06/21/18 19:42 Calcium 9.0 mg/dL (8.4-10.2) 06/21/18 19:42 Total Creatine Kinase 19 units/L (30-135) L 06/22/18 12:39 CK-MB (CK-2) < 1.0 ng/mL (0.0-4.0) 06/22/18 12:39 CK-MB (CK-2) Rel Index 5.2 (0-4) H 06/22/18 12:39 Troponin T < 0.010 ng/mL (0.00-0.029) 06/22/18 12:39 HCG, Qual Negative (Negative) 06/21/18 19:42
[2018-06-24] MEDS: HEPARIN SUB-Q SCH ×2 (00:41→01:20)
[2018-06-24] MEDS: NITRO-BID 2% TP SCH ×2 (05:13→09:48)
[2018-06-24] MEDS: ASPIRIN PO SCH (09:47)
[2018-06-24 11:42] VITALS: BP 112/66
--- NOTE | 2018-06-24 13:02 | Discharge Summary ---
Providers - Providers Date of Admission: 06/22/18 00:30 Date of discharge: 06/24/18 Attending physician: ALEXANDER WILKINSON Primary care physician: FRANK GOMEZ MD Hospitalization Condition: Fair Hospital course: Patient is 47 yo with diabetes, bipolar. She presented with chest pain. She was evaluated in Emergency Department. Patient was given Aspirin,admitted. Stress test done next day was normal. She was discharged back to [facility] but could not go so went following day. Chest pain due to GERD, non cardiac. Disposition: DC/TX-65 PSY HOSP/PSY UNIT - Discharge Diagnoses (1) GERD (gastroesophageal reflux disease) Status: Acute (2) Bipolar disorder Status: Acute (3) Chest pain Status: Acute Qualifiers: Chest pain type: unspecified Qualified Code(s): R07.9 - Chest pain, unspecified (4) Morbid obesity with BMI of 40.0-44.9, adult Status: Acute (5) Pre-diabetes Status: Acute Core Measure Documentation - Palliative Care Palliative Care/ Comfort Measures: Not Applicable - Core Measures Any of the following diagnoses?: none Exam - Constitutional Vitals: Temp Pulse Resp BP Pulse Ox 97.9 F 88 19 112/66 95 06/24/18 11:28 06/24/18 11:28 06/24/18 11:28 06/24/18 11:28 06/24/18 11:28 Plan Activity: no restrictions Diet: low fat, low cholesterol, low salt, diabetic Additional Instructions: 1.Follow up with PCP in 1 week. 2.Go to [place] on discharge to [facility] management of bipolar disorder. 3.Follow up with Dr. milian GI in 1 week top evaluate for poss EGD. Follow up with: PRIMARY CARE, [Primary Care Provider] - 3-5 Days Prescriptions: Famotidine [Pepcid] 20 mg PO BID #30 tablet
== END 2018-06-24 13:12 ==
LOC: ED 19:05 → INTOOBSV 06-22 00:30 → 4A 06-22 00:30
PROVIDERS: ADMIT Internal Medicine; ATTEND Internal Medicine
DX: R07.89 Other chest pain (principal); E11.9 Type 2 diabetes mellitus without complications; F31.9 Bipolar disorder, unspecified; E66.01 Morbid (severe) obesity due to excess calories; Z68.41 Body mass index [BMI] 40.0-44.9, adult
CPT/HCPCS: 36415; 71045; 71275; 78452; 80048; 82550; 82553; 84484; 84703; 85025; 85379; 87116; 93005; 93010; 93017; 96372; 99284; A9502; G0378; J1644; J1885; J2785; Q9967

== ENCOUNTER 2018-06-24 13:37 | Emergency (ER) | payer MEDICARE ==
[2018-06-24 13:47] VITALS: BP 143/92
--- NOTE | 2018-06-24 14:57 | Emergency Department Report ---
Blank Doc - Documentation Documentation: This is a 47 y.o. female that presents for reassessment for admission to [place]. Patient was discharged from inpatient and sent to ER for readmission workup. She was admitted 4 days ago for chest pain. She denies new symptoms. Ordered: Labs
[2018-06-24 15:28] LABS: BUN/Creatinine Ratio 15; Basophils % (Auto) 0.5 % (0.0-1.8); Blood Urea Nitrogen 9 mg/dL (7-17); Eosinophils # (Auto) 0.3 K/mm3 (0.0-0.4); Eosinophils % (Auto) 3.8 % (0.0-4.3); Hematocrit 37.4 % (30.3-42.9); Hemoglobin 12.8 gm/dl (10.1-14.3); Hemolysis Index 4; Lymphocytes # (Auto) 1.3 K/mm3 (1.2-5.4); Lymphocytes % (Auto) 18.8 % (13.4-35.0); Mean Corpuscular HGB Conc 34 % (30-34); Mean Corpuscular Volume 85 fl (79-97); Monocytes # (Auto) 0.5 K/mm3 (0.0-0.8); Monocytes % (Auto) 6.7 % (0.0-7.3); Platelet Count 234 K/mm3 (140-440); Red Blood Count 4.39 M/mm3 (3.65-5.03); Red Cell Distribution Width 14.4 % (13.2-15.2)
== END 2018-06-24 15:00 | disposition left against medical advice (07) ==
LOC: ED 13:37
DX: R45.851 Suicidal ideations (principal); Z53.21 Procedure and treatment not carried out due to patient leaving prior to being seen by health care provider
CPT/HCPCS: 36415; 80048; 85025; G0480; 80320